=== PATIENT | male | born 1985 | race American Indian/Alaskan Native ===

== ENCOUNTER 2016-11-29 19:10 | Observation (INO) | payer SELFPAY ==
[2016-11-29 20:48] LABS: Bilirubin,Urine NEG (Negative); Blood,Urine NEG (Negative); Ketones,Urine NEG (Negative); Leukocyte Esterase,Urine NEG (Negative); Mucus,Urine 2+ /HPF; Nitrite,Urine NEG (Negative); WBC,Urine < 1.0 /HPF (0.0-6.0)
--- NOTE | 2016-11-30 08:01 | Emergency Department Report ---
HPI - General Chief Complaint: Abdominal Pain Time Seen by Provider: 11/30/16 07:55 - HPI HPI: Chief complaint: Left upper quadrant pain HPI: Patient complains of left upper quadrant pain off and on for the last 3 days. Patient states it is crampy and sharp and worse after eating. Patient denies nausea vomiting or diarrhea but states that his stool appears smaller to him. Patient denies drinking alcohol with any type and denies taking any medications. Patient states he has not had any abdominal surgery. Patient denies any swelling to his groin or genitalia. Mode of arrival: private car Source: Patient Began: 3 days ago Duration: Intermittent Context: See above Quality: See above Severity: 4 out of 10 Improved with: Nothing Worsened with: Eating Associated signs and symptoms: See above ED Past Medical Hx - Past Medical History Previous Medical History?: No - Surgical History Past Surgical History?: No - Social History Smoking Status: Never Smoker Substance Use Type: None ED Review of Systems ROS: Stated complaint: STOMACH PAIN,NO BOWEL MOVEMENT Other details as noted in HPI ROS Constitutional: No fever ENT: No uri symptoms Cardiovascular: No chest pain Respiratory: No sob or cough GI: No nausea vomiting or diarrhea, denies melena : No dysuria frequency or urgency, Skin: No rash Neuro: No focal weakness or numbness Psych: No depression Jalen/lymph: No edema Physical Exam - Physical Exam Vital Signs: Vital Signs 11/29/16 11/30/16 19:47 04:38 Temperature 98.4 F 98.4 F Pulse Rate 77 63 Respiratory 18 18 Rate Blood Pressure 143/83 134/91 O2 Sat by Pulse 99 99 Oximetry Physical Exam: GENERAL: The patient is well-developed well-nourished . HEENT: Normocephalic. Atraumatic. Extraocular motions are intact. Patient has moist mucous membranes. NECK: Supple. No meningitic signs are noted. There is no adenopathy noted. CHEST/LUNGS: Clear to auscultation. There is no respiratory distress noted. HEART/CARDIOVASCULAR: Regular. There is no tachycardia. There is no gallop rub or murmur. ABDOMEN: Abdomen is soft, diffusely tender without rebound or guarding. Patient has normal bowel sounds. There is no abdominal distention. SKIN: There is no rash. There is no edema. There is no diaphoresis. NEURO: The patient is awake, alert, and oriented. The patient is cooperative. The patient has no focal neurologic deficits. The patient has normal speech. MUSCULOSKELETAL: There is no tenderness or deformity. There is no limitation range of motion. There is no evidence of acute injury. ED Course Vital Signs 11/29/16 11/30/16 19:47 04:38 Temperature 98.4 F 98.4 F Pulse Rate 77 63 Respiratory 18 18 Rate Blood Pressure 143/83 134/91 O2 Sat by Pulse 99 99 Oximetry - Reevaluation(s) Reevaluation #1: 11/30/16 11:[address] Siddiqui who recommended admission and further evaluation for possible colon pathology. ED Medical Decision Making - Lab Data Result diagrams: 11/30/16 08:21 11/30/16 08:21 - Radiology Data Radiology results: report reviewed (CT abdomen and pelvis shows narrowing of the rectosigmoid with proximal colon dilatation) Critical care attestation.: If time is entered above; I have spent that time in minutes in the direct care of this critically ill patient, excluding procedure time. ED Disposition Clinical Impression: Large bowel stricture Disposition: OP ADMITTED IP TO THIS HOSP Is pt being admited?: Yes Does the pt Need Aspirin: No Condition: Fair Referrals: PRIMARY CARE, [Primary Care Provider] - 3-5 Days Time of Disposition: 11:31 (admit to the hospitalist)
[2016-11-30] MEDS ORDERED: NACL 0.9% 1000 ML IV ONE (08:02)
[2016-11-30 08:38] LABS: Basophils % (Auto) 0.5 % (0.0-1.8); Eosinophils % (Auto) 0.8 % (0.0-4.3); Hematocrit 43.8 % (35.5-45.6); Hemoglobin 14.4 gm/dl (11.8-15.2); Mean Corpuscular HGB Conc 33 % (32-34); Mean Corpuscular Hemoglobin 28 pg (28-32); Mean Corpuscular Volume 85 fl (84-94); Platelet Count 272 K/mm3 (140-440); Red Blood Count 5.15 M/mm3 (3.65-5.03); Red Cell Distribution Width 12.8 % (13.2-15.2); White Blood Count 4.6 K/mm3 (4.5-11.0)
[2016-11-30 08:49] LABS: Alanine Aminotransferase 18 units/L (7-56); Albumin 4.7 g/dL (3.9-5); Albumin/Globulin Ratio 1.5 %; Alkaline Phosphatase 66 units/L (35-129); Anion Gap 18 mmol/L; Bilirubin,Direct 0.3 mg/dL (0-0.2); Bilirubin,Indirect 1.6 mg/dL; Bilirubin,Total 1.9 mg/dL (0.1-1.2); Blood Urea Nitrogen 12 mg/dL (9-20); Calcium 9.6 mg/dL (8.4-10.2); Carbon Dioxide 27 mmol/L (22-30); Chloride 98.3 mmol/L (98-107); Glucose 90 mg/dL (75-100); Lipase 26 units/L (13-60); Potassium 3.8 mmol/L (3.6-5.0); Sodium 139 mmol/L (137-145); Total Protein 7.9 g/dL (6.3-8.2)
--- NOTE | 2016-11-30 10:25 | Cat Scan Report ---
CT scan of abdomen and pelvis with IV contrast: History: Abdominal pain. Findings: Normal lung bases. No pleural or pericardial effusion. Normal liver. Spleen at upper limit of normal in size. Normal pancreas and gallbladder. Large hiatal hernia. Normal adrenals and kidney parenchyma and bladder. No free intraperitoneal fluid or air. No evidence of adenopathy. Narrowing of the rectosigmoid region with dilated colon proximally. Minimal stool in colon. Normal appendix. Impression: Large hiatal hernia. Suspected narrowing of the rectosigmoid. Further evaluation recommended.
--- NOTE | 2016-11-30 11:46 | Admit Criteria Form ---
Admission Criteria Documentation: ABDOMINAL PAIN Clinical Indications for Admission to Inpatient Care (Place 'X' for any and all applicable criteria): Admission is indicated for ANY ONE of the following(1)(2)(3)(4)(5): [ X]I. Inpatient admission required rather than observation care (Also use Abdominal Pain: Observation Care, as appropriate) because of ANY ONE of the following: [ ]a) Severe pain requiring acute inpatient management [ X]b) Identification of etiology/finding that requires inpatient care (eg, aortic dissection, free air) [ ]c) Absent bowel sounds with complete ileus(6) [ ]d) Suspected toxic megacolon [ ]e) Severe electrolyte abnormalities requiring inpatient care [ ]f) High fever or infection requiring inpatient admission as indicated by ANY ONE of following(7)(8): [ ] i) Appropriate outpatient or observational care antimicrobial treatment unavailable, not effective, or not feasible [ ] ii) Documented bacteremia [ ] iii) Temperature > 104.9 degrees F (oral) [ ] iv) T >103.1 F (oral) or < 96.8 F(rectal) that does not respond to all emergency treatment measures [ ]g) Signs of intestinal obstruction [B] [ ]h) Hemodynamic instability [ ]i) IV fluid to replace significant ongoing losses (greater than 3 L/m2 per day) (12)(13) [ ]j) Percutaneous or open drainage (eg, abscess, biliary tract ) procedures [ ]k) Parenteral nutrition regimen that must be implemented on inpatient basis [ ]l) Other condition,treatment or monitoring requiring inpatient admission. [ ]II. Peritoneal signs present [ ]III. Surgery needed that cannot be performed on an ambulatory basis. [ ]IV. Evaluation requires patient to not eat or drink for extended period ( eg, more than 24 hours). [ ]V. Contraindications and/or Inappropriate clinical situations for Observational Care in patients with abdominal pain, when ANY ONE of the following is required: [ ]a) Thorough evaluation is required to prevent catastrophic events due to delays in diagnosing (e.g.Mesenteric ischemia) 1,3 [ ]b) Patient with severe pathology or with chronic symptoms unlikely to improve in the ED stay (3) [ ]. General contraindications and/or Inappropriate clinical situations for Observational Care in patients with abdominal pain, when ANY ONE of the following is required: [ ]a) Prediction of prolongation of LOS based on ANY ONE of the following may be considered as a contraindication for observational care 2, 3, 4, 5, 6, 7, 8, 9, 10, 11 [ ]i) Age > 65 yrs. [ ]ii) Patient arriving by ambulance [ ]iii) Patient with high acuity [ ]iv) Patient requiring vital sign monitoring [ ]v) Patient on IV medication [ ]b) Systolic blood pressures 180mmHg 3,12 [ ]c) Patient with altered mental status including delirium and other alteration of consciousness, (3) [ ]d) Patient whose discharge disposition will be to a long term home or rehabilitation home should not be managed in Emergency Department Observation Unit. CMS rule requires 3 days hospital stay before such placement.3,13 [ ]e) Patient with failure to thrive due to broad array of etiologies 3,16,17 [ ]f) Inability to ambulate 3,14 Extended stay beyond goal length of stay may be needed for(2)(3): [ ]a) Persistent abdominal pain with suspected intra-abdominal process [ ]b) Diagnosed condition requiring continued stay (e.g., pancreatitis, complicated diverticulitis) [ ]c) Surgery (e.g., colectomy) The original [employer] [facility] content created by [employer] has been revised. The portions of the content which have been revised are identified through the use of italic text or in bold, and [facility] has neither reviewed nor approved the modified material.All other unmodified content is copyright [employer] [facility]. Please see references footnoted in the original [employer] [facility] edition 2016 Admission Criteria Met: Yes
[2016-11-30] MEDS ORDERED: TYLENOL PO PRN (12:41)
[2016-11-30] MEDS ORDERED: DULCOLAX PR PRN (12:41)
[2016-11-30] MEDS ORDERED: ZOFRAN IV PRN (12:41)
[2016-11-30] MEDS ORDERED: MILK OF MAGNESIA PO PRN (12:41)
--- NOTE | 2016-11-30 13:10 | History and Physical Report ---
History of Present Illness Date of examination: 11/30/16 Date of admission: 11/30/16 11:49 Chief complaint: Intermittent upper left/mid abdominal pain for 3-4 days History of present illness: 31-year-old -[place] male with no known medical conditions and not on any medications presents to the emergency room with complaints of left upper and mid abdominal pain for 3-4 days. He describes it as intermittent lasts a few minutes and resolves by itself. He denies any fever or chills melena nausea or vomitings. CT scan of the abdomen and pelvis was done which showed large hiatal hernia and suspected narrowing of the rectosigmoid area with distended colon proximal to the stricture. He is admitted for further elevation of the colon stricture. At this time he denies any skin significant abdominal pain. He states he is a heterosexual Past History Past Medical History: No medical history Past Surgical History: Other (patient had a laparotomy during his infancy. Details are not known) Social history: smoking Family history: cancer (grandmother had unknown cancer) Medications and Allergies Allergies Allergy/AdvReac Type Severity Reaction Status Date / Time No Known Allergies Allergy Unverified 11/29/16 19:53 Home Medications Medication Instructions Recorded Confirmed Last Taken Type No Known Home Medications [No 11/30/16 11/30/16 Unknown History Reported Home Medications] Active Meds: Active Medications Acetaminophen (Tylenol) 650 mg PO Q4H PRN PRN Reason: Pain MILD(1-3)/Fever >100.5/BRANNON Bisacodyl (Dulcolax) 10 mg [place] QDAY PRN PRN Reason: Constipation unrelieved by [facility] Heparin Sodium (Porcine) (Heparin) 5,000 unit SUB-Q Q8HR [place] Magnesium Hydroxide (Milk Of Magnesia) 30 ml PO Q4H PRN PRN Reason: Constipation Ondansetron HCl (Zofran) 4 mg IV Q8H PRN PRN Reason: N/V unrelieved by Reglan Review of Systems Constitutional: no weight loss, no weight gain, no fever, no chills, no fatigue , no weakness Ears, nose, mouth and throat: no ear pain, no ear discharge, no sore throat, no headache Cardiovascular: no chest pain, no palpitations, no syncope, no lightheadedness, no high blood pressure Respiratory: no cough, no hemoptysis, no shortness of breath, no wheezing Gastrointestinal: abdominal pain (as stated above in the history of present illness), no nausea, no vomiting, no diarrhea, no constipation, no melena, no early satiety, no heartburn Genitourinary Male: urinary frequency (has urinary frequency for the past 3 days but denies any nocturia or dysuria), no dysuria, no hematuria, no urinary hesitancy Rectal: no pain Musculoskeletal: no neck pain, no low back pain, no arthritis Integumentary: no rash Neurological: no seizures, no syncope Psychiatric: no anxiety, no depression Endocrine: no excessive thirst, no polydipsia, no nocturia Exam - Constitutional Vitals: Temp Pulse Resp BP Pulse Ox 98.6 F 71 18 135/74 99 11/30/16 07:57 11/30/16 10:14 11/30/16 10:14 11/30/16 10:14 11/30/16 10:14 General appearance: Present: no acute distress, well-nourished - EENT Eyes: Present: PERRL, EOM intact ENT: hearing intact, clear oral mucosa, poor dentition - Neck Neck: Present: supple, normal ROM. Absent: masses or JVD - Respiratory Respiratory effort: normal Respiratory: bilateral: CTA - Cardiovascular Rhythm: regular Heart Sounds: Present: S1 & S2 - Extremities Extremities: No edema - Abdominal General gastrointestinal: Present: soft, non-tender. Absent: hepatomegaly, splenomegaly - Rectal Rectal Exam: deferred - Integumentary Integumentary: Present: clear, warm - Musculoskeletal Musculoskeletal: strength equal bilaterally - Neurologic Neurologic: CNII-XII intact, no focal deficits Results - Labs CBC & Chem 7: 11/30/16 08:21 11/30/16 08:21 Assessment and Plan - Patient Problems (1) Large bowel stricture Current Visit: Yes Status: Acute Plan to address problem: CT of the abdomen and pelvis showed rectosigmoid narrowing with distended colon proximal to the narrowing Dr. Huitron in the emergency department contacted GI Dr. Siddiqui who recommended patient be admitted for further evaluation He otherwise appears to be medically stable Await GI evaluation Keep him nothing by mouth to midnight (2) Hiatal hernia Current Visit: Yes Status: Chronic Plan to address problem: Asymptomatic
--- NOTE | 2016-11-30 13:56 | Gastroenterology Consultation ---
<BESSIE ALVES - Last Filed: 11/30/16 13:50> History of Present Illness - Reason for Consult Consult date: 11/30/[address]/ abdominal pain Requesting physician: ESAU BHAKTA - History of Present Illness Mr. Lemus is a 31 y/o male admitted with a 3-4 day hx of Left sided abdominal pain. He denies N/V or signs of bleeding. NO prior GI hx. CT of A/P revealed a narrowing of the rectosigmoid area with distended colon. He states his only surgery was as an , details unknown. Last BM today, very small amt. No significant PMH. Past History Past Medical History: No medical history Social history: smoking Family history: cancer (grandmother had unknown cancer) Medications and Allergies Allergies Allergy/AdvReac Type Severity Reaction Status Date / Time No Known Allergies Allergy Unverified 11/29/16 19:53 Home Medications Medication Instructions Recorded Confirmed Last Taken Type No Known Home Medications [No 11/30/16 11/30/16 Unknown History Reported Home Medications] Active Meds: Active Medications Acetaminophen (Tylenol) 650 mg PO Q4H PRN PRN Reason: Pain MILD(1-3)/Fever >100.5/BRANNON Bisacodyl (Dulcolax) 10 mg [place] QDAY PRN PRN Reason: Constipation unrelieved by MOM Heparin Sodium (Porcine) (Heparin) 5,000 unit SUB-Q Q8HR [place]IL[place] Magnesium Hydroxide (Milk Of Magnesia) 30 ml PO Q4H PRN PRN Reason: Constipation Ondansetron HCl (Zofran) 4 mg IV Q8H PRN PRN Reason: N/V unrelieved by Reglan Review of Systems - Review of Systems All systems: negative Gastrointestinal: abdominal pain Exam - Constitutional Vital Signs: Temp Pulse Resp BP Pulse Ox 98.6 F 71 18 135/74 99 11/30/16 07:57 11/30/16 10:14 11/30/16 10:14 11/30/16 10:14 11/30/16 10:14 General appearance: no acute distress - EENT Eyes: EOM intact ENT: hearing intact - Neck Neck: supple - Respiratory Respiratory: bilateral: CTA - Cardiovascular Rhythm: regular Heart Sounds: Present: S1 & S2 Extremities: Full ROM - Gastrointestinal General gastrointestinal: Present: soft, tender (TTP lower quads mild), normal bowel sounds - Integumentary Integumentary: Present: warm, dry - Neurologic Neurological: alert and oriented x3 - Labs CBC & Chem 7: 11/30/16 08:21 11/30/16 08:21 Assessment and Plan 1. Abdominal Pain 2. Abnormal CT scan. <ZAYNAB LIANG - Last Filed: 11/30/16 14:46> Medications and Allergies Active Meds: Active Medications Acetaminophen (Tylenol) 650 mg PO Q4H PRN PRN Reason: Pain MILD(1-3)/Fever >100.5/BRANNON Bisacodyl (Dulcolax) 10 mg [place] QDAY PRN PRN Reason: Constipation unrelieved by [facility]OM Heparin Sodium (Porcine) (Heparin) 5,000 unit SUB-Q Q8HR [place] Magnesium Hydroxide (Milk Of Magnesia) 30 ml PO Q4H PRN PRN Reason: Constipation Ondansetron HCl (Zofran) 4 mg IV Q8H PRN PRN Reason: N/V unrelieved by Reglan Exam - Constitutional Vital Signs: Temp Pulse Resp BP Pulse Ox 98.6 F 71 18 135/74 99 11/30/16 07:57 11/30/16 10:14 11/30/16 10:14 11/30/16 10:14 11/30/16 10:14 - Labs CBC & Chem 7: 11/30/16 08:21 11/30/16 08:21 Assessment and Plan - Patient Problems (1) Large bowel stricture Current Visit: Yes Status: Acute Plan to address problem: No definite mass on CT although there is mild dilation in the left colon only above the suspected stricture. No significant bowel obstruction is present. Will plan prep and colonoscopy tomorrow. (2) Hiatal hernia Current Visit: Yes Status: Chronic
[2016-11-30] MEDS ORDERED: GOLYTELY PO SCH (15:00)
[2016-11-30] MEDS: HEPARIN SUB-Q SCH ×2 (16:02→21:48)
[2016-12-01] MEDS: HEPARIN SUB-Q SCH (07:55)
[2016-12-01] MEDS ORDERED: DIPRIVAN 10 MG/ML IV ONE ×4 (09:59→10:46)
[2016-12-01] MEDS ORDERED: NACL 0.9% 1000 ML 1,000 ML IV SCH (10:00)
[2016-12-01] MEDS ORDERED: XYLOCAINE MPF 2% ONE (10:01)
--- NOTE | 2016-12-01 10:19 | Anesthesia Consultation ---
Anesthesia Consult and Med Hx Date of service: 12/01/16 - Airway Anesthetic Teeth Evaluation: Good ROM Head & Neck: Adequate Mental/Hyoid Distance: Adequate Mallampati Class: Class II Intubation Access Assessment: Probably Good - Pulmonary Exam CTA: Yes - Cardiac Exam Cardiac Exam: RRR - Pre-Operative Health Status ASA Pre-Surgery Classification: ASA2 Proposed Anesthetic Plan: MAC - Pulmonary Hx Smoking: Yes (quit 10/2015) Hx Asthma: No COPD: No Hx Pneumonia: No - Cardiovascular System Hx Hypertension: No - Central Nervous System Hx Back Pain: No - Gastrointestinal Hx Gastroesophageal Reflux Disease: No - Endocrine Hx End Stage Renal Disease: No - Hematic Hx Anemia: No Hx Sickle Cell Disease: No - Other Systems Hx Alcohol Use: No Hx Substance Use: No Hx Cancer: No Hx Obesity: No
--- NOTE | 2016-12-01 10:19 | Anesthesia Day of Surgery ---
Anesthesia Day of Surgery - Day of Surgery Patient Examined: Yes Patient H&P Reviewed: Yes Patient is NPO: Yes
--- NOTE | 2016-12-01 11:13 | Post Operative Note ---
Pre-op diagnosis: abnormal CT scan, narrowing in recto-sigmoid colon Post-op diagnosis: other (no intrinsic colon lesion/mass seen. possible external compression at level of recto-sigmoid as there decreased distention with air insufflation) Findings: No colonic mass or intrinsic source of abnormal CT findings seen. Possible extrinsic compression at level of recto-sigmoid as there was decreased distention with air insufflation. Procedure: colonoscopy Anesthesia: MAC Surgeon: EDWARD HATHAWAY Estimated blood loss: none Pathology: none Condition: stable Disposition: floor
--- NOTE | 2016-12-01 11:16 | Post Anesthesia Evaluation ---
- Post Anesthesia Evaluation Patient Participated: Yes Airway Patent: Yes Stable Respiratory Function: Yes Nausea/Vomiting: No Temp > 96.8F: Yes Pain Manageable: Yes Adequeate Hydration: Yes Anesthesia Complications: No
[2016-12-01 11:35] VITALS: BP 124/70
--- NOTE | 2016-12-01 12:08 | Discharge Summary ---
Providers - Providers Date of Admission: 11/30/16 11:49 Attending physician: BECCA VAUGHN MD Primary care physician: [employer]LECTION CLERK Hospitalization Reason for admission: suspected IO Condition: Fair Procedures: colonoscopy Hospital course: 31-year-old -[place]ian male with no known medical conditions and not on any medications presented to the emergency room with complaints of left upper and mid abdominal pain for 3-4 days. He described it as intermittent lasts a few minutes and resolves by itself. He denies any fever or chills melena nausea or vomitings. CT scan of the abdomen and pelvis was done which showed large hiatal hernia and suspected narrowing of the rectosigmoid area with distended colon proximal to the stricture. He is admitted for further elevation of the colon stricture. Patient was admitted to the floor he didn't have any pain and GI was consulted and he was preped for colonoscopy. In the morning colonoscopy was done and showed no stricture or obstruction. Patient was scheduled to see GI in 2-3 weeks as an outpatient and was discharged to home. He was stable at the time of discharge. Disposition: DISCHARGED TO HOME OR SELFCARE Time spent for discharge: 31 minutes - Discharge Diagnoses (1) Large bowel stricture Status: Acute (2) Hiatal hernia Status: Chronic Core Measure Documentation - Palliative Care Palliative Care/ Comfort Measures: Not Applicable - Core Measures Any of the following diagnoses?: none Exam - Constitutional Vitals: Temp Pulse Resp BP Pulse Ox 97.9 F 83 11 L 124/70 99 12/01/16 11:32 12/01/16 11:32 12/01/16 11:32 12/01/16 11:32 12/01/16 11:32 - EENT Eyes: Present: PERRL, EOM intact ENT: hearing intact, clear oral mucosa - Neck Neck: Present: supple, normal ROM - Respiratory Respiratory effort: normal - Cardiovascular Rhythm: regular Heart Sounds: Present: S1 & S2 - Extremities Extremities: no ischemia Peripheral Pulses: within normal limits - Abdominal General gastrointestinal: Present: soft, non-tender, non-distended - Integumentary Integumentary: Present: clear, warm - Musculoskeletal Musculoskeletal: strength equal bilaterally - Psychiatric Psychiatric: appropriate mood/affect - Neurologic Neurologic: CNII-XII intact Plan Activity: no restrictions Weight Bearing Status: Full Weight Bearing Diet: regular Follow up with: PRIMARY CAREMD [Primary Care Provider] - 3-5 Days LUIS M HATHAWAY MD [Staff Physician] - 6 Weeks
--- NOTE | 2016-12-01 14:28 | Operative Report ---
PROCEDURE: Colonoscopy. PREOPERATIVE DIAGNOSIS: Abnormal CT scan, narrowing in the rectosigmoid junction of the colon. POSTOPERATIVE DIAGNOSIS: No colon mass or intrinsic etiology of CT findings seen during the exam. COMPLICATIONS: No immediate complications. ANESTHESIA: Monitored anesthesia care. DESCRIPTION OF PROCEDURE: After consent was obtained, the patient was placed in left lateral decubitus position. The Fujinon colonoscope was advanced with ease to the cecum. The views of the mucosa were good. The patient tolerated the procedure well. The quality of the prep was good. FINDINGS: The colon appeared normal. There was no obvious mass or stricture of the colon. However, there was decreased distention with air insufflation in the distal colon of unclear significance (possible extrinsic compression?) IMPRESSION: Normal colonoscopy as above, possible extrinsic colonic source for CT findings given inability to completely distend distal colon with air insufflation. RECOMMENDATIONS: 1. Restart diet 2. Bowel regimen daily as needed for constipation 3. Return to GI clinic in 2-3 weeks 4. Consider further work-up/imaging studies based on symptoms JOB# [id number] JOHNATHON/SURESH ULLOA
== END 2016-12-01 14:15 | disposition home or self-care (01) ==
LOC: ED 19:10 → INTOOBSV 11-30 11:49 → 3A 11-30 11:49
PROVIDERS: ADMIT Internal Medicine; ATTEND Internal Medicine
DX: K56.69 Other intestinal obstruction (principal); K44.9 Diaphragmatic hernia without obstruction or gangrene
CPT/HCPCS: 36415; 45378; 74177; 80048; 80074; 81001; 83690; 85025; 96360; 99285; G0378; J1644; J2704; J7030; Q9967